=== PATIENT | male | born 1980 | race Two or more races ===

== ENCOUNTER 2020-09-12 19:27 | Emergency (ER) | payer MEDICAID, OTHER ==
[~2020-09-12] VITALS: Ht 177.8 cm; Wt 61.2 kg
[2020-09-12] MEDS ORDERED: FLUORESCEIN SOD OPTH TEST STRIP LEFTEYE ONE (21:45)
[2020-09-12] MEDS ORDERED: TETRACAINE HCL 0.5% OPTH(EYE) SOLN 4ML LEFTEYE ONE (21:45)
[2020-09-12 22:12] VITALS: BP 139/96
== END 2020-09-12 22:30 | disposition home or self-care (01) ==
LOC: ER 19:27
DX: H10.89 Other conjunctivitis (principal); F17.210 Nicotine dependence, cigarettes, uncomplicated; F12.10 Cannabis abuse, uncomplicated